=== PATIENT | male | born 1995 | race Caucasian/White ===

== ENCOUNTER 2025-08-24 21:38 | Emergency (ER) | payer BC ==
[~2025-08-24] VITALS: Ht 182.9 cm; Wt 90.7 kg
--- NOTE | 2025-08-24 22:09 | NUR ---
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
[2025-08-24] MEDS ORDERED: LIDOCAINE 5% (PATCH) 1 EA PATCH TP ONE (22:43)
[2025-08-24] MEDS ORDERED: KETOROLAC TROMETHAMINE INJ 30 MG/ML VIAL ONE (22:43)
[2025-08-24] MEDS ORDERED: CYCLOBENZAPRINE 10 MG TABLET ONE (22:44)
[2025-08-24] MEDS: KETOROLAC TROMETHAMINE INJ 30 MG/ML VIAL IM ONE (22:53)
[2025-08-24] MEDS: CYCLOBENZAPRINE 10 MG TABLET PO ONE (22:53)
[2025-08-24] MEDS: LIDOCAINE 5% (PATCH) 1 EA PATCH TP SCH (22:53)
--- NOTE | 2025-08-24 23:12 | NUR ---
Patient discharged to home in stable condition. Written and verbal after care instructions given. Patient verbalizes understanding of instruction.
[2025-08-24 23:13] VITALS: BP 130/80; TEMP 98.6; O2SAT 97
== END 2025-08-24 23:13 | disposition home or self-care (01) ==
LOC: ER 21:43
DX: M54.9 Dorsalgia, unspecified (principal)
CPT/HCPCS: 99283; 96372; J1885